=== PATIENT | female | born 2000 | race Caucasian/White ===

== ENCOUNTER 2025-04-19 22:06 | Emergency (ER) | payer MEDICAID, SELFPAY ==
--- OUTSIDE RECORDS SUMMARY | 2025-04-19 19:58 | XMS_ITS | Encounter Summary ---
Author Organization [facility] Address [address] [place] [address] Care Team Providers Care Search Engine Marketing Specialist Name Role Phone Unavailable Primary Care Provider Unavailabl e Reason for Visit * Reason Comments Flank Pain Encounter Details Date Type Department Care Team (Late st Contact Info) Description 04/19/2025 7:58 PM CDT - 04/19/2025 9:02 PM CDT Emergency [facility] Emergency Medicine [address] [facility] [address] [place] [address] Kanu Saucedo MD [address] [place] [address] [place] [address] Flank pain in patient (Primary Dx) Discharge Disposition: Home or Self Care Social History Tobacco Use Types Packs/Day Years Used Date Smoking Tobacco: Never Smokeless Tobacco: Never Tobacco Cessation:Counseling Given: Not Answered Alcohol Use Standard Drinks/Week Comments Never 0 (1 standard drink = 0.6 oz pur e alcohol) Feeling Safe Answer Date Recorded Are you in a relationship wi th someone who hurts you emotionally and/or physically? No 04/19/2025 Comments Unknown Sex and Gender Information Value Date Recorded Sex Assigned at Not on file Legal Sex Female 7:55 PM CDT Gender Identity Not on file Sexual Orientation Not on file documented as of this encounter Last Filed Vital Signs Vital Sign Reading Time Taken Comments Blood Pressure 119/60 04/19/2025 9:02 PM CDT Pulse 76 04/19/2025 9:02 PM CDT Temperature 36.7 C (98 F) 04/19/2025 8:06 PM CDT Respiratory Rate 19 04/19/2025 9:02 PM CDT Oxygen Saturation 98% 04/19/2025 9:02 PM CDT Inhaled Oxygen Concentration - - Weight 66.1 kg (145 lb 11.2 oz) 04/19/2025 8:06 PM CDT Height 162.6 cm (5' 4 ) 04/19/2025 8:06 PM CDT Body Mass Index 25.01 04/19/2025 8:06 PM CDT documented in this encounter Discharge Instructions * Attachments The following attachments cannot be sent through Care Everywhere. * Flank Pain (Afghan) * : Abdominal Pain (Afghan) documented in this encounter ED Notes * Jada Anaya RN - 04/19/2025 8:08 PM CDT Patient presents to the ER for complaint of left flank pain. Patient is also 8 week , denies spotting or burning with urination. Patient reports that she did not treat her last kidney infection in time, and her baby was in NICU for a while and was scared and wanted checked out. * Kanu Saucedo MD - 04/19/2025 7:55 PM CDT HISTORY OF PRESENT ILLNESS Arleth Kim, a 24 y.o. female presents to the ED with a Chief Complaint of Flank Pain Subjective This patient is a 24-year-old white female who presents to the emergency department complaining of left flank pain and some pelvic cramping. Patient states she is 8 weeks 5 days . She has nothad any vaginal bleeding. She states her just moved to the area and she does not have an clinic physician director yet. She states she did have similar symptoms with previous and she had a urinary tract infection which caused some complications at the end of her . She has not had a fever. REVIEW OF SYSTEMS Review of Systems Constitutional: Negative for activity change, appetite change, chills, diaphoresis, fatigue and fever. HENT: Negative for congestion, dental problem, ear pain, postnasal drip, rhinorrhea, sinus pressure, sore throat, tinnitus and trouble swallowing. Eyes: Negative for photophobia, pain, discharge, redness and visual disturbance. Respiratory: Negative for cough, chest tightness, shortness of breath and wheezing. Cardiovascular: Negative for chest pain, palpitations and leg swelling. Gastrointestinal: Negative for abdominal distention, abdominal pain, blood in stool, constipation, diarrhea, nausea and vomiting. Genitourinary: Positive for flank pain and pelvic pain. Negative for decreased urine volume, difficulty urinating, dyspareunia, dysuria, frequency, hematuria, menstrual problem, urgency, vaginal bleeding and vaginal discharge. Musculoskeletal: Negative for arthralgias, back pain, gait problem, joint swelling, myalgias, neck pain and neck stiffness. Skin: Negative for color change and rash. Neurological: Negative for dizziness, seizures, speech difficulty, weakness, light-headedness, numbness and headaches. Hematological: Negative for adenopathy. Psychiatric/Behavioral: Negative for agitation, behavioral problems, confusion, dysphoric mood, hallucinations, self-injury, sleep disturbance and suicidal ideas. The patient is not nervous/anxious. All other systems reviewed and are negative. PAST MEDICAL HISTORY REVIEWED MEDICAL: Patient has no past medical history on file. SURGICAL: Patient has no past surgical history on file. FAMILY: Patient's family history is not on file. SOCIAL: reports that she has never smoked. She has never used smokeless tobacco. She reports that she does not drink alcohol and does not use drugs. No history on file. Social History Other Topics Concern Not on file ALLERGIES Patient has no known allergies. HOME MEDICATIONS Patient's Home Medications No medications on file Objective PHYSICAL EXAM INITIAL VS BP: 103/61 (04/19/252005), Heart Rate: 78 bpm (04/19/252005), Resp: 19 (04/19/252005), Pulse: 78(04/19/252005), Temp: 98 ??F (36.7 ??C) (04/19/252005), Temp src: Temporal (04/19/252005), SpO2:99 % (04/19/252005), Height: 5' 4 (162.6 cm) (04/19/252005), Weight: 66.1 kg (145 lb 11.2 oz) (04/19/252005), BMI (Calculated): 25 (04/19/252005) No LMP recorded. Physical Exam Vitals and nursing note reviewed. Constitutional: General: She is not in acute distress. Appearance: She is well-developed. HENT: Head: Normocephalic and atraumatic. Eyes: Conjunctiva/sclera: Conjunctivae normal. Pupils: Pupils are equal, round, and reactive to light. Cardiovascular: Rate and Rhythm: Normal rate and regular rhythm. Heart sounds: Normal heart sounds. Pulmonary: Effort: Pulmonary effort is normal. No respiratory distress. Breath sounds: Normal breath sounds. Abdominal: General: Bowel sounds are normal. Palpations: Abdomen is soft. Tenderness: There is no abdominal tenderness. Musculoskeletal: General: No tenderness. Normal range of motion. Cervical back: Normal range of motion and neck supple. Skin: General: Skin is warm and dry. Neurological: Mental Status: She is alert and oriented to person, place, and time. Cranial Nerves: No cranial nerve deficit. Psychiatric: Behavior: Behavior normal. Thought Content: Thought content normal. DIAGNOSTICS LAB: URINALYSIS WITH REFLEX MICROSCOPIC - Normal Result Value COLOR UA Yellow CLARITY UA Clear SPECIFIC GRAVITY UA 1.015 PH UA 7.0 LEUKOCYTE ESTERASE UA Negative NITRITE UA Negative PROTEIN UA Negative GLUCOSE UA Negative KETONES UA Negative UROBILINOGEN UA 1.0 BILIRUBIN UA Negative BLOOD UA Negative RADIOLOGY: No orders to display EKG: PROCEDURES Procedures MEDICAL DECISION MAKING AND PLAN OF CARE Medical Decision Making Patient's exam is entirely benign. Her urinalysis is normal. We do not have ultrasound coverage here tonight which I discussed with the patient and her . I offered to do a quantitative hCG andshe would need a repeat in 2 to 3 days but she states she would rather have that done when she getsset up with her new clinic physician director. She was mainly just concerned about possible UTI but I did discuss with her the possibility of an ectopic with pelvic pain. She may need ultrasound. If thepain worsens or she develops any vaginal bleeding or any lightheadedness or dizziness she should return to an emergency department immediately otherwise follow-up with an clinic physician director as soon as possible for her first OB visit and further workup. Amount and/or Complexity of Data Reviewed Labs: ordered. Clinical Scoring & Consults . LAST VS BP: 103/61 (04/19/252005), Heart Rate: 78 bpm (04/19/252005), Resp: 19 (04/19/252005), Pulse: 78(04/19/252005), Temp: 98 ??F (36.7 ??C) (04/19/252005), Temp src: Temporal (04/19/252005), SpO2:99 % (04/19/252005) CLINICAL IMPRESSION Final diagnoses: [O26.899, R10.9] Flank pain in patient (Primary) DISPOSITION, EDUCATION AND MEDICATION RECONCILIATION Medications reconciled. See after visit summary for patient education on discharged patients. ED Disposition ED Disposition Discharge Condition Stable User Kanu Saucedo MD Date/Time ThuApr 19, 2025 8:31 PM Comment -- ATTESTATION STATEMENTS documented in this encounter Plan of Treatment Not on file documented as of this encounter Procedures Procedure Name Priority Date/Time Associated Diagnosis Comments URINALYSIS W/REFLEX MICROSCOPIC Stat 04/19/2025 8:00 PM CDT documented in this encounter Results * URINALYSIS WITH REFLEX MICROSCOPIC (04/19/2025 8:00 PM CDT) COLOR UA Yellow Pale to Dark Yellow 04/19/2025 8:15 PM CDT [facility] CLARITY UA Clear Clear 04/19/2025 8:15 PM CDT [facility] SPECIFIC GRAVITY UA 1.015 1.003 - 1.035 04/19/2025 8:15 PM CDT [facility] PH UA 7.0 5.0 - 8.0 04/19/2025 8:15 PM CDT [facility] LEUKOCYTE ESTERASE UA Negative Negative 04/19/2025 8:15 PM CDT [facility] NITRITE UA Negative Negative 04/19/2025 8:15 PM CDT [facility] PROTEIN UA Negative Negative 04/19/2025 8:15 PM CDT [facility] GLUCOSE UA Negative Negative 04/19/2025 8:15 PM CDT [facility] KETONES UA Negative Negative 04/19/2025 8:15 PM CDT [facility] UROBILINOGEN UA 1.0 <2.0 mg/dL 8:15 PM CDT [facility] BILIRUBIN UA Negative Negative 04/19/2025 8:15 PM CDT [facility] BLOOD UA Negative Negative 04/19/2025 8:15 PM CDT [facility] Urine URINE SPECIMEN OBTAINED BY CLEAN CATCH PROCEDURE / Unknown Collection / Unknown 04/19/2025 8:00 PM CDT 04/19/2025 8:11 PM CDT us Kanu Saucedo MD URINE ORDERABLES Final R esult [facility] CLIA # [id number] [address] [place] [id number] documented in this encounter Visit Diagnoses Diagnosis Flank pain in patient- Primary documented in this encounter
--- OUTSIDE RECORDS SUMMARY | 2025-04-19 22:19 | XMS_ITS | Encounter Summary ---
Author Organization [employer] [facility] Address [address] Hager: Epic Prelude ADT [place]IS[place]A SLOAN [address] Care Team Providers Care Phosphoric Acid Operator Name Role Phone Unavailable Primary Care Provider Unavailabl e Encounter Details Date Type Department Care Team (Latest Contact Info) Description 04/19/2025 Travel Social History Tobacco Use Types Packs/Day Years Used Date Smoking Tobacco: Never Smokeless Tobacco: Never Alcohol Use Standard Drinks/Week Comments Never 0 [...] on file documented as of this encounter Plan of Treatment Not on file documented as of this encounter Visit Diagnoses Not on filedocumented in this encounter
--- OUTSIDE RECORDS SUMMARY | 2025-04-19 22:19 | XMS_ITS | Clinical Summary ---
Author Organization [facility] Address [address] [address] Phone Care Team Providers Care Wheat Shipper Name Role Phone Unavailable Primary Care Provider Unavailabl e Allergies No known active allergies Medications No known medications Encounters Date Type Department Care Team Description 04/19/2025 7:58 PM CDT - 04/19/2025 9:02 PM CDT Emergency [facility] Emergency Medicine [address] [address] Kanu Saucedo MD Flank pain in patient (Primary Dx) Discharge Disposition: Home or Self Care 04/19/2025 Travel from Last 3 Months Social History Tobacco Use Types Packs/Day Years [...] on file Sexual Orientation Not on file Last Filed Vital Signs Vital Sign Reading [...] Mass Index 25.01 04/19/2025 8:06 PM CDT Plan of Treatment Health Maintenance Due Date Last Done Comments CHLAMYDIA SCREENING (ANNUAL) 11-24 YEARS 2012 HPV VACCINES (1 - 3-dose series) 2016 DTAP/TDAP/TD VACCINES (1 - Tdap) 2020 HEPATITIS B VACCINES (1 of 3 - 19+ 3-dose series) 10/26 CERVICAL CANCER SCREENING 2022 HPV/Cotest (21-29) 2022 PAP SMEAR 2022 INFLUENZA VACCINE (#1) 2024 Procedures Procedure Name Priority Date/Time Associated Diagnosis Comments URINALYSIS W/REFLEX MICROSCOPIC Stat 04/19/2025 8:00 PM CDT from Last 3 Months Results * URINALYSIS WITH REFLEX MICROSCOPIC (04/19/2025 8:00 PM CDT) COLOR UA Yellow Pale to Dark Yellow 04/19/2025 8:15 PM CDT [facility] CLARITY UA Clear Clear 04/19/2025 8:15 PM CDT [facility] SPECIFIC GRAVITY UA 1.015 1.003 - 1.035 04/19/2025 8:15 PM CDT [facility] PH UA 7.0 5.0 - 8.0 04/19/2025 8:15 PM CDT [facility] LEUKOCYTE ESTERASE UA Negative Negative 04/19/2025 8:15 PM CDT [facility] NITRITE UA Negative Negative 04/19/2025 8:15 PM CDT [facility] PROTEIN UA Negative Negative 04/19/2025 8:15 PM CDT [facility] GLUCOSE UA Negative Negative 04/19/2025 8:15 PM CDT [facility] KETONES UA Negative Negative 04/19/2025 8:15 PM CDT [facility] UROBILINOGEN UA 1.0 <2.0 mg/dL 8:15 PM CDT [facility] BILIRUBIN UA Negative Negative 04/19/2025 8:15 PM CDT [facility] BLOOD UA Negative Negative 04/19/2025 8:15 PM CDT [facility] Urine URINE SPECIMEN OBTAINED BY CLEAN CATCH PROCEDURE / Unknown Collection / Unknown 04/19/2025 8:00 PM CDT 04/19/2025 8:11 PM CDT Kanu Saucedo MD URINE ORDERABLES Final R esult [facility] CLIA # [id number] [address] [place] [id number] from Last 3 Months Insurance MEDICAID [place]
[2025-04-19 22:29] VITALS: BP 115/74; PULSE 66; RESP 14; TEMP 36.8; O2SAT 100; BMI 24.9
[2025-04-19 22:33] VITALS: BP 111/61; PULSE 74; O2SAT 98
--- NOTE | 2025-04-19 22:37 | USR_ITS ---
PROCEDURE INFORMATION: Exam: US , Transvaginal Exam date and time: 04/19/2025 10:44 PM Age: 24 years old Clinical indication: complicated by abdominal or pelvic pain; Generalized abdominal pain; First trimester (<14 weeks 0 days); Gestational age or lmp: 12w 0d by crl; ; G4-p3-a0-l3 presenting with lower pelvic cramping x 2-3 days. No vaginal bleeding. ; Additional info: 8 wks preg; Pain LABS AND CLINICAL REPORTS: Last menstrual period start date: 02/17/2025 Gestational age (Established): 8 w 5 d Estimated due date (Established): 02/17/2025 TECHNIQUE: Imaging protocol: Real-time transvaginal obstetrical ultrasound of the maternal pelvis with image documentation. Transvaginal imaging was used for better evaluation of the fetus, adnexa, and/or cervix. COMPARISON: No relevant prior studies available. FINDINGS: Gestation: Intrauterine gestation is visualized. pole is visualized. No yolk sac is visualized. heart rate: 145 bpm BIOMETRY: Gestational age (AUA): 12 w 0 d Estimated due date (AUA): 11/01/2025 MATERNAL: Uterus: Uterus measures 12.69 cm x 11.27 cm x 7.06 cm. Right ovary/adnexa: Right ovary measures 3.5 cm x 3.2 cm x 2.3 cm. Right ovarian volume is 13.8 mL. Normal blood flow. Left ovary/adnexa: Left ovary measures 3.8 cm x 3 cm x 2.4 cm. Left ovarian volume is 14.4 mL. Normal blood flow. US/US OB <= 14 weeks fetus [id number] IMPRESSION: Single live intrauterine gestation estimated at 12 weeks 0 days.
[2025-04-19 23:03] VITALS: BP 111/61; PULSE 76; O2SAT 99
[2025-04-19 23:14] LABS: Basophils # 0.1 10^3/uL (0.0-0.1); Basophils % 0.7 %; Eosinophils # 0.2 10^3/uL (0.0-0.8); Eosinophils % 2.7 %; Hematocrit 32.4 % (36-47); Lymphocytes # 1.8 10^3/uL (0.8-4.8); Lymphocytes % 24.1 %; Mean Corpuscular HGB Conc 34.6 g/dL (30-55); Mean Corpuscular Hemoglobin 27.9 pg (27-33); Mean Corpuscular Volume 80.8 fl (85-98); Mean Platelet Volume 10.3 fL (7.4-10.4); Monocytes # 0.5 10^3/uL (0.2-0.9); Monocytes % 6.8 %; Neutrophils # 4.82 10^3/uL (1.8-7.7); Neutrophils % 65.3 %; Nucleated Red Blood Cells % 0 %; Platelet Count 248 10^3/cmm (157-399); Red Blood Count 4.01 10^6/uL (3.85-5.65); Red Cell Distribution Width 13.1 % (12.1-15.1); White Blood Count 7.38 10^3/uL (3.29-11.43)
[2025-04-19 23:17] LABS: Bilirubin Urine Negative (Negative); Blood Urine Negative (Negative); Glucose Urine UA Negative (Normal); Ketones Urine 1+ (Negative); Leukocyte Esterase Urine Negative (Negative); Nitrate Urine Negative (Negative); Protein Urine Negative (Negative); Specific Gravity, Urine 1.008 (1.005-1.030); Urine Appearance Clear (CLEAR); Urine Color Yellow (Yellow); pH Urine 6.5 (5-7)
[2025-04-19 23:21] LABS: Add Urine Microscopic? YES; Bacteria Urine None Seen /hpf; Hyaline Casts Urine 0-4 /lpf; RBC Urine 0-2 /hpf (0-2); Squamous Epithelial Cell Urine 0-5 /hpf (0-5); WBC Urine 0-5 /hpf (0-5)
--- NOTE | 2025-04-19 23:35 | W.ED.ABDPA2 ---
HPI - Abdominal Pain General: Chief Complaint: Abdominal Pain Stated Complaint: sc view sent possible atopic, 8 wks Time Seen by Provider: 04/19/25 22:37 Source: patient Mode of arrival: ambulatory Limitations: no limitations History of Present Illness: Patient is a 24-year-old female what she believes to be around 8 weeks here after she began developing some crampy sensations to her pelvis and around to the left side of her back. She states the last time she felt like this she had a kidney infection. She went to [facility] where she was evaluated and told she did not have an infection but they wanted to rule out an ectopic this recommended she come to the emergency department here to have ultrasound imaging. Upon arrival here, patient feels like symptoms are improved. Her vital signs are stable. MD elicited complaint: abdominal pain Onset (ago): hour(s) Pain Consistency: now resolved Location: L flank and Pelvis Severity: mild Quality: cramping Radiation: none Migration to: no migration Exacerbating factors: nothing Relieving factors: nothing Associated Symptoms: Reports nausea; Denies change in bowel habits, chills, diarrhea, dysuria, fever(s) and vomiting Related Data Allergies Allergy/AdvReac Type Severity Reaction Status Date / Time No Known Allergies Allergy Verified 04/19/25 22:34 Review of Systems Const: Denies: fever(s), chills, body aches, fatigue or malaise Card: Denies: chest pain Resp: Denies: dyspnea GI: Reports: abdominal pain and nausea; Denies: vomiting, diarrhea or change in bowel habits : Reports: flank pain; Denies: difficulty voiding, dysuria, urinary frequency, urinary urgency, urinary hesitancy or vaginal bleeding Musc: Reports: back pain; Denies: neck pain, extremity pain, extremity swelling, joint pain, joint swelling or joint redness Skin/Breast: Denies: rash Neuro: Denies: headache(s), numbness in extremities, weakness in extremities, sensory changes or dizziness Physical Exam Const: COMMON NORMALS: no acute distress, average body habitus, no limitations, healthy appearing, alert and well nourished Resp: COMMON NORMALS: normal respiratory effort GI: COMMON NORMALS: Normal to inspection, nondistended, normoactive bowel sounds present, Soft to palpation, non-tender, No hepatosplenomegaly present and no masses INSPECTION: Yes normal to inspection and Yes gravid abdomen PALPATION: Yes Soft to palpation, No Tenderness to palpation present (GI) and Yes No hepatosplenomegaly present : COMMON NORMALS: Yes no CVA tenderness BLADDER/KIDNEY EXAM: Yes no CVA tenderness Back/Pelvis: COMMON NORMALS: no CVA tenderness Neuro: SENSORIUM/ORIENTATION: Yes alert Course Vital Signs: Vital signs: Vital Signs Temperature 98.2 F 04/19/25 22:29 Pulse Rate 78 04/20/25 00:08 Respiratory Rate 14 04/19/25 22:29 Blood Pressure 102/59 04/20/25 00:08 Pulse Oximetry 97 04/20/25 00:08 Oxygen Delivery Me thod Room Air 04/19/25 22:29 MDM - Abdominal Pain Medical Decision Making Patient states she feels well and like to go home. Offered referral for OB care but patient declines. She states she is planning on trying to find a microsoft exchange administrator for care. Her blood work showing a normal white count. Urine does not look suspicious for infection. Ultrasound showing a single live IUP at around 12 weeks. Return ED precautions discussed. Medical Records I reviewed the patient's medical records. Lab Data I reviewed the patient's lab results. 04/19/25 22:44 04/19/25 22:44 Labs/Radiology: Radiology Impressions Ultrasound 04/19/25 22:37 IMPRESSION: Single live intrauterine gestation estimated at 12 weeks 0 days. Laboratory Results WBC 7.38 10^3/uL (3.29-11.43) 04/19/25 22:44 RBC 4.01 10^6/uL (3.85-5.65) 04/19/25 22:44 Hgb 11.20 g/dL (11.27-16.99) L 04/19/25 22:44 Hct 32.4 % (36-47) L 04/19/25 22:44 MCV 80.8 fl (85-98) L 04/19/25 22:44 MCH 27.9 pg (27-33) 04/19/25 22:44 MCHC 34.6 g/dL (30-55) 04/19/25 22:44 RDW 13.1 % (12.1-15.1) 04/19/25 22:44 Plt Count 248 10^3/cmm (157-399) 04/19/25 22:44 MPV 10.3 fL (7.4-10.4) 04/19/25 22:44 Neut % (Auto) 65.3 % 04/19/25 22:44 Lymph % (Auto) 24.1 % 04/19/25 22:44 Cooke % (Auto) 6.8 % 04/19/25 22:44 Eos % (Auto) 2.7 % 04/19/25 22:44 Baso % (Auto) 0.7 % 04/19/25 22:44 Neut # (Auto) 4.82 10^3/uL (1.8-7.7) 04/19/25 22:44 Lymph # (Auto) 1.8 10^3/uL (0.8-4.8) 04/19/25 22:44 Cooke # (Auto) 0.5 10^3/uL (0.2-0.9) 04/19/25 22:44 Eos # (Auto) 0.2 10^3/uL (0.0-0.8) 04/19/25 22:44 Baso # (Auto) 0.1 10^3/uL (0.0-0.1) 04/19/25 22:44 Nucleated RBC % (auto) 0 % 04/19/25:44 Nucleated RBCs # 0.0 /100WBC 04/19/25 22:44 Sodium 136 mmol/L (136-145) 04/19/25 22:44 Potassium 3.2 mmol/L (3.5-5.1) L 04/19/25 22:44 Chloride 100 mmol/L (98-107) 04/19/25 22:44 Carbon Dioxide 22 mmol/L (22-29) 04/19/25 22:44 Anion Gap 17.2 (5-19) 04/19/25 22:44 BUN 5 mg/dL (6-20) L 04/19/25 22:44 Creatinine 0.5 mg/dL (0.5-0.9) 04/19/25 22:44 GFR Calculation 152.9 mL/min (90-130) H 04/19/25 22:44 Glucose 109 mg/dL (65-115) 04/19/25 22:44 Calculated Osmolality 280 mOsm/kg (285-295) L 04/19/25 22:44 Calcium 9.6 mg/dL (8.5-10.5) 04/19/25: Total Bilirubin 0.8 mg/dL (0.15-1.2) 04/19/25: AST 10 U/L (0-32) 04/19/25: ALT 7 U/L (0-33) 04/19/25: Alkaline Phosphatase 77 U/L (35-105) 04/19/25: Total Protein 7.3 g/dL (6.6-8.7) 04/19/25: Albumin 4.2 g/dL (3.5-5.2) 04/19/25: Globulin 3.1 g/dL (1.3-4.6) 04/19/25: Ser , Semi-Qnt 90481.00 mIU/mL 04/19/25: Urine Color Yellow (Yellow) 04/19/25: Urine Appearance Clear (CLEAR) 04/19/25: Urine pH 6.5 (5-7) 04/19/25: Ur Specific Cavalier 1.008 (1.005-1.030) 04/19/25: Urine Protein Negative (Negative) 04/19/25: Urine Glucose (UA) Negative (Normal) 04/19/25: Urine Ketones 1+ (Negative) H 04/19/25: Urine Blood Negative (Negative) 04/19/25: Urine Nitrate Negative (Negative) 04/19/25: Urine Bilirubin Negative (Negative) 04/19/25: Urine Urobilinogen 1.0 mg/dL (Negative) 04/19/25: Ur Leukocyte Esterase Negative (Negative) 04/19/25: Urine RBC 0-2 /hpf (0-2) 04/19/25: Urine WBC 0-5 /hpf (0-5) 04/19/25: Ur Squamous Epith Cells 0-5 /hpf (0-5) 04/19/25: Amorphous Sediment Not Reportable 04/19/25: Urine Bacteria None seen /hpf (NONE) 04/19/25: Hyaline Casts 0-4 /lpf H 06/25/25 22:44 XR interpretation done by ED provider, pending radiology final review Discharge Plan Discharge Patient Disposition: Home Clinical Impression: Cramping affecting , antepartum Condition: Stable Discharge Orders: Discharge ED (Routine); Ordered 04/19/25 Ordered By: Ashly Crawford Patient Instructions: Patient Portal & Cindy Instructions Print Language: Palestinian Coding Level of Care Code ED Brake Operator Heavy Duty for Viri Dang
[2025-04-19 23:36] LABS: Alanine Aminotransferase 7 U/L (0-33); Albumin Level 4.2 g/dL (3.5-5.2); Alkaline Phosphatase 77 U/L (35-105); Anion Gap 17.2 (5-19); Aspartate Amino Transferase 10 U/L (0-32); Blood Urea Nitrogen 5 mg/dL (6-20); Calcium 9.6 mg/dL (8.5-10.5); Carbon Dioxide 22 mmol/L (22-29); Chloride 100 mmol/L (98-107); Creatinine Clr Calc Pharmacy 163.3422; Globulin 3.1 g/dL (1.3-4.6); Glomerular Filtration Rate 152.9 mL/min (90-130); Glucose 109 mg/dL (65-115); Osmolality Calculated 280 mOsm/kg (285-295); Potassium 3.2 mmol/L (3.5-5.1); Sodium 136 mmol/L (136-145); Total Bilirubin 0.8 mg/dL (0.15-1.2); Total Protein 7.3 g/dL (6.6-8.7)
[2025-04-20] VITALS: BP 102/59; PULSE 78; O2SAT 92
[2025-04-20 00:08] VITALS: BP 102/59; PULSE 78; O2SAT 97
== END 2025-04-20 00:10 | disposition home or self-care (01) ==
PROVIDERS: Emergency Provider Physician Assistant
DX: O26.891 Other specified pregnancy related conditions, first trimester (principal); R10.9 Unspecified abdominal pain; Z3A.12 12 weeks gestation of pregnancy
CPT/HCPCS: 36415; 76801; 76817; 80053; 81001; 84702; 85025; 99284

== ENCOUNTER 2025-10-01 17:28 | Outpatient (CLI) | payer MEDICAID, SELFPAY ==
[2025-10-01 17:28] VITALS: BMI 26.6
[2025-10-01 17:43] VITALS: BP 115/66; PULSE 96
[2025-10-01 17:48] LABS: Glucose Urine UA Negative (Normal); Nitrate Urine Negative (Negative); Specific Gravity, Urine 1.018 (1.005-1.030)
[2025-10-01 17:59] VITALS: BP 102/57; PULSE 105
[2025-10-01 18:13] VITALS: BP 106/57; PULSE 89
[2025-10-01 18:25] VITALS: BP 107/60; PULSE 90
== END 2025-10-01 18:41 | disposition home or self-care (01) ==
LOC: OPOB 17:33 → OBGYN 17:34
PROVIDERS: Visit Provider Family Medicine
DX: O26.899 Other specified pregnancy related conditions, unspecified trimester (principal); Z3A.00 Weeks of gestation of pregnancy not specified; R25.2 Cramp and spasm; M54.50 Low back pain, unspecified
CPT/HCPCS: 59025; 81001; 83986; 99211; J9999